=== PATIENT | female | born 1950 | race Caucasian/White ===

== ENCOUNTER 2022-11-15 07:59 | Outpatient (RCR) | payer MEDICARE, MEDICAID, SELFPAY ==
--- NOTE | 2022-11-15 08:56 | OPREHPOC ---
Outpatient Therapy Plan of Care This is a Multidisciplinary Plan of Care that may contain components documented by all disciplines (PT, OT, and ST.) PT Problem 1 PT Problem #1 Knowledge Deficit PT Goal 1 Goal Patient to demonstrate independence with HEP Target Visit 6 PT Problem 2 PT Problem #2 Pain PT Goal 1 Goal 1. Patient to demonstrate highest pain at 2/10 2. Patient to report ability to sleep with no disturbance due to pain Target Visit 12 PT Problem 3 PT Problem #3 Impaired Range of Motion PT Goal 1 Goal Patient to demonstrate 160 deg of R shoulder flexion and 45 deg of R shoulder ER to return to dressing at PLOF Target Visit 12 PT Problem 4 PT Problem #4 Impaired Strength PT Goal 1 Goal Patient to demonstrate 4+/5 strength of R shoulder to return to house hold tasks at PLOF. Target Visit 12 PT Problem 5 PT Problem #5 Impaired Functional Mobil PT Goal 1 Goal Patient to report ability to dress with no limitations Target Visit 12
--- NOTE | 2022-11-15 08:56 | PTOPEVAL1 ---
Assessment and note entered by Martha Schaffer DPT Evaluation Information Assessment Status Evaluation Diagnosis R shoulder pain Onset 07/12/22 Subjective Information Patient reports she underwent R reverse total shoulder on 11/11/22. Patient reports she was not given a sling but her neighbor had one but she is not wearing it becuase it increases her pain. Patient reports she was given exercises from MD and instructed no to lift anything over a coffee mug. She reports she has difficulty with dressing , house hold tasks and sleeping. Patient is retired but does her own house work. RTMD 11/19/22 Reported Pain Level Pain Score 7: Self Report Assessment PT Clinical Summary Patient is a 72 year old female who presents to PT with R shoulder pain s/p R reverse total shoulder replacement. Patient demonstrates decreased R shoulder ROM and increase pain this date. She has fair tolerance to initial treatment with soft end feel with PROM due to pain. Patient would benefit from skilled PT to return to house hold tasks, dressing and sleeping at PLOF. Plan of Care Interventions Electrical Stimulation,Hot Pack/Cold Pack,Manual Therapy,Neuro Re-education,Patient/Caregiver Educati,Therapeutic Activities,Therapeutic Exercise PT Services Indicated Yes Treatment Frequency and 2x weekly for 12 visits Duration These treatments will address the objective and functional deficits as defined above. The patient will be advanced safely and appropriately in order for the patient to progress towards his/her prior level of function. Additional exercises will be introduced and as well as a comprehensive home exercise program upon discharge, if needed, ?to ensure carryover of functional gains achieved in the clinic. This treatment plan has been reviewed and agreement upon by the patient.
--- NOTE | 2023-01-27 08:15 | OPREHPOC ---
Outpatient Therapy Plan of Care This is a Multidisciplinary Plan of Care that may contain components documented by all disciplines (PT, OT, and ST.) PT Problem 1 PT Problem #1 Knowledge Deficit PT Goal 1 Goal Patient to demonstrate independence with HEP Target Visit 20 PT Problem 2 PT Problem #2 Pain PT Goal 1 Goal 1. Patient to demonstrate highest pain at 2/10 2. Patient to report ability to sleep with no disturbance due to pain Target Visit 20 PT Problem 3 PT Problem #3 Impaired Range of Motion PT Goal 1 Goal Patient to demonstrate 160 deg of R shoulder flexion and 45 deg of R shoulder ER to return to dressing at PLOF Target Visit 20 PT Problem 4 PT Problem #4 Impaired Strength PT Goal 1 Goal Patient to demonstrate 4+/5 strength of R shoulder to return to house hold tasks at PLOF. Target Visit 20 PT Problem 5 PT Problem #5 Impaired Functional Mobil PT Goal 1 Goal Patient to report ability to dress with no limitations Target Visit 20
--- NOTE | 2023-01-27 08:16 | PTOPREEVAL ---
Assessment and note entered by Marhta Schaffer DPT Evaluation Information Assessment Status Re-evaluation Diagnosis R shoulder pain Onset 11/11/22 Subjective Information Patient reports that MD wanted her to take a break from PT and now to start back again. She reports that her shoulder continues to be weak and painful . She reports she is now able to open her storm door which she was not able to do before. She reports difficulty with sleeping due to shoulder pain. She is unable to fix her hair and reach into cabinets. She reports RTMD in February. Reported Pain Level Pain Score 5: Self Report Assessment PT Clinical Summary Patient has been seen for 8 visits of skilled PT and returns today after last treatment of 12/09/22. Patient continues to lack R shoulder strength and ROM as well as increased pain. She has difficulty with sleep, fixing her hair and completing house hold tasks. She would benefit from continued skilled PT to address impairments and return to PLOF. Plan of Care Interventions Electrical Stimulation,Hot Pack/Cold Pack,Manual Therapy,Neuro Re-education,Patient/Caregiver Educati,Therapeutic Activities,Therapeutic Exercise PT Services Indicated Yes Treatment Frequency and continue 2x weekly for 12 visits Duration These treatments will address the objective and functional deficits as defined above. The patient will be advanced safely and appropriately in order for the patient to progress towards his/her prior level of function. Additional exercises will be introduced and as well as a comprehensive home exercise program upon discharge, if needed, ?to ensure carryover of functional gains achieved in the clinic. This treatment plan has been reviewed and agreement upon by the patient.
--- NOTE | 2023-04-10 08:09 | PCPTNOTE ---
Patient discharged due to non compliance with follow up
== END 2023-02-13 23:59 | disposition home or self-care (01) ==
LOC: CHSPT 07:59
PROVIDERS: Visit Provider Orthopaedic Surgery
DX: Z48.89 Encounter for other specified surgical aftercare (principal); M25.511 Pain in right shoulder; Z96.611 Presence of right artificial shoulder joint
CPT/HCPCS: 97014; 97110; 97140; 97161; G0283

== ENCOUNTER 2024-02-14 12:07 | Emergency (ER) | payer MEDICARE, MEDICAID, SELFPAY ==
[2024-02-14 12:07] VITALS: BP 146/59; PULSE 75; RESP 16; TEMP 36.4; O2SAT 96
[2024-02-14 12:15] VITALS: BP 146/59; PULSE 75; RESP 16; TEMP 36.4; O2SAT 96
--- NOTE | 2024-02-14 12:23 | ED.LOWEXIN ---
HPI - Extremity Injury (Lower) General Chief Complaint: Extremity Injury, Lower Stated Complaint: right knee pain Time Seen by Provider: 02/14/24 12:19 Source: patient Mode of arrival: ambulatory Limitations: no limitations History of Present Illness HPI Narrative: this is a 74-year-old female that presents with some chronic osteoarthritis in her right knee presents with some increased pain in the knee with no swelling has good range of motion although tender with movement no calf pain no erythema no warmth. There is no injuries to the knee. MD complaint: other ( right knee pain) Injury: Right: knee ( no swelling no injuries no redness no warmth) Severity: moderate Severity scale (1-10): 6 Exacerbating factors: movement and palpation Related Data Allergies Allergy/AdvReac Type Severity Reaction Status Date / Time Penicillins Allergy Rash Verified 02/14/24 12:15 Review of Systems Review of Systems: All systems reviewed & are unremarkable except as noted in HPI and below PMFSH Past Medical History Medical History Osteoarthritis, knee Exam Const: General: healthy appearing and no acute distress Nutritional Appearance: well nourished Orientation/consciousness: patient oriented x3 Limitations: no limitations Resp: Effort & Inspection: normal respiratory effort Auscultation: clear to auscultation bilaterally Cardio: Rate: regular rate Rhythm: regular rhythm GI: GI Palp: Yes Soft to palpation Skin: General skin exam: normal color Rashes: no rashes Wounds: no wounds Extrem: Other: tender right knee with palpation and movement with no swelling no calf pain or tenderness no posterior knee pain or tenderness no warmth or erythema. Course Course Emergency Course: Toradol 30mg IM administered. Vital Signs Vital signs: Vital Signs Temperature 36.4 C L 02/14/24 12:07 Pulse Rate 75 02/14/24 12:07 Respiratory Rate 16 02/14/24 12:07 Blood Pressure 146/59 H 02/14/24 12:07 Pulse Oximetry 96 02/14/24 12:07 Oxygen Delivery Room Air 02/14/24 12:07 Temperature 36.4 C L 02/14/24 12:15 Pulse Rate 75 02/14/24 12:15 Respiratory Rate 16 02/14/24 12:15 Blood Pressure 146/59 H 02/14/24 12:15 Pulse Oximetry 96 02/14/24 12:15 Oxygen Delivery Room Air 02/14/24 12:15 Critical Care Time Critical Care Time Critical Care Time: No Discharge Plan Discharge Clinical Impression: Knee osteoarthritis Patient Disposition: Home, Self-Care Condition: Stable Instructions: Antibiotic Form, Osteoarthritis (ED) Additional Instructions: advised take medication as prescribed and follow-up with primary for further evaluation treatment within a week. Prescriptions: New oxycodone-acetaminophen [Percocet] 5-325 mg tablet 1 tablet PO Q6H PRN (Reason: pain) Qty: 14 0RF Follow-up/Referrals: [place],MD Phu [Primary Care Provider] - Time of Disposition: 12:28
[2024-02-14] MEDS: KETOROLAC 30 MG/ML VIAL (*BKC) IM (12:29)
== END 2024-02-14 12:37 | disposition home or self-care (01) ==
PROVIDERS: Emergency Provider Emergency Medicine; PCP Family Medicine
DX: M17.11 Unilateral primary osteoarthritis, right knee (principal)
CPT/HCPCS: 96372; 99283; J1885